=== PATIENT | male | born 1960 ===

== ENCOUNTER 2018-12-15 09:59 | Day surgery (SDC) | payer OTHER ==
[~2018-12-15 09:59] MED LIST: Buffered Lidocaine 1% SYRIN* 1 ML/SYRINGE INTRADERM ONE; Lactated Ringers 1000 ML Bag* 1,000 ML IV SCH; Sodium Citrate/Citric Acid* 15 ML UDC PO ONE
[2018-12-15] MEDS ORDERED: Buffered Lidocaine 1% SYRIN* 1 ML/SYRINGE INTRADERM ONE (10:21)
[2018-12-15] MEDS ORDERED: ceFOXitin 2 GM IVPREMIX* 2 GM/50 ML BAG ONE (10:21)
[2018-12-15] MEDS ORDERED: fentaNYL* 50 MCG/ML 2 ML VIAL (100 MCG VIAL) ONE ×2 (10:41→13:39)
[2018-12-15] MEDS ORDERED: Midazolam* 1 MG/ML 2 ML VIAL (2 MG) ONE (10:41)
[2018-12-15] MEDS ORDERED: Acetaminophen TAB* 325 MG PO PRN (10:43)
[2018-12-15] MEDS ORDERED: fentaNYL* 50 MCG/ML 2 ML VIAL (100 MCG VIAL) IV PRN (10:43)
[2018-12-15] MEDS ORDERED: diPHENhydraMINE IV* 50 MG/ML 1 ml VIAL (BENADRYL) IV PRN (10:43)
[2018-12-15] MEDS ORDERED: DiMENhydriNATE IV* 50 MG/ML VIAL IV PUSH PRN (10:43)
[2018-12-15] MEDS ORDERED: HYDROcodone/ACETAMIN 5-325 MG* 1 TAB PO PRN (10:43)
[2018-12-15] MEDS ORDERED: Naloxone* 0.4 MG/ML 1 ML VIAL IV PRN (10:43)
[2018-12-15] MEDS ORDERED: Ondansetron INJ* 2 MG/ML VIAL IV PRN (10:43)
[2018-12-15] MEDS ORDERED: Bupivacaine 0.25% SDV PF* 10 ML VIAL INJ ONE ×2 (13:06)
[2018-12-15] MEDS ORDERED: Midazolam* 1 MG/ML 5 ML VIAL (5 MG) ONE (13:27)
[2018-12-15] MEDS ORDERED: Famotidine IV* 10 MG/ML 2 ML (20 mg) ONE (13:27)
[2018-12-15] MEDS ORDERED: Lidocaine 2% PF * 5 ML VIAL ONE (13:39)
[2018-12-15] MEDS ORDERED: Propofol* 10 MG/ML 20 ML BTL ONE ×2 (13:45→13:49)
[2018-12-15] MEDS ORDERED: Bacitracin OINTMENT* 0.5% 0.5 oz TUBE ONE (13:57)
[2018-12-15 14:45] VITALS: BP 97/77
--- NOTE | 2018-12-15 18:29 | OP ---
DATE OF OPERATION: 12/15/18 - [facility] DATE OF : 58 SURGEON: Reji Flores MD. SUBSURFACE AUGMENTEE OPERATOR: AMINTA King student. PRE-OP DIAGNOSIS: Anal fissure. POST-OP DIAGNOSIS: Anal fissure. OPERATIVE PROCEDURE: Rectal examination under anesthesia, lateral internal sphincterotomy. INDICATIONS FOR PROCEDURE: Persistent fissure. Risks of lateral internal sphincterotomy including, but not limited to, bleeding, infection, persistent fissure were explained to the patient along with temporary or permanent incontinence to gas or stool. He seemed to understand, agreed to the procedure , and all questions were answered. DESCRIPTION OF PROCEDURE: The patient was taken to the surgical room and placed in the prone jackknife position on the OR table. Sedation was given by the anesthesiologist. The area was prepped and draped in sterile fashion. Time -out was performed indicating correct patient, correct procedure. Digital rectal examination revealed no masses, normal tone. A retractor was placed in the rectum. There was no obvious distal rectal abnormality. Posterior midline mucosa appeared normal. There was an anterior midline fissure. The left lateral skin was anesthetized over the intersphincteric groove. Incision was made and hemostat was placed in the intersphincteric groove and a small portion of the superficial internal sphincter muscle was isolated and divided using Bovie cautery. EBL minimal. Hemostasis was intact. The wound was irrigated. Antibiotic ointment along with a Surgicel dressing was applied and packed in the rectum at the sphincter. Marcaine was placed around the fissure and around the sphincterotomy site. He tolerated the procedure well. He was taken to Recovery in stable condition. [id number]/[facility] #: [id number] MTDD
== END 2018-12-15 14:57 | disposition home or self-care (01) ==
LOC: OR 09:59
PROVIDERS: ATTEND Surgery
DX: K60.1 Chronic anal fissure (principal); F17.210 Nicotine dependence, cigarettes, uncomplicated; F41.9 Anxiety disorder, unspecified
CPT/HCPCS: A9270-GY; J0694; J2250; J2704; J3010; J3490